=== PATIENT | female | born 1990 | race African-American/Black ===

== ENCOUNTER 2022-04-27 06:41 | Day surgery (SDC) | payer BC ==
[2022-04-26 10:22] VITALS: BMI 32.6
[2022-04-27 07:45] LABS: BHCG - Serum Negative (NEGATIVE); Pregs Control Background? CLEAR/WHITE (CLR/WHITE); Pregs Control Bar Appear? YES (CONTROL BAR)
[2022-04-27 07:51] LABS: Hemoglobin 15.4 g/dL (12.0-16.0)
[2022-04-27] MEDS ORDERED: Midazolam HCl 2 mg/2 ml Vial ONE (08:24)
[2022-04-27] MEDS ORDERED: Ondansetron PF 4 MG/2 ML Vial ONE ×2 (08:27→08:32)
[2022-04-27] MEDS ORDERED: Meperidine HCl/PF 25 MG/ML VIAL ONE (08:27)
[2022-04-27] MEDS ORDERED: Famotidine/PF 20 mg/2ml Vial ONE (08:27)
[2022-04-27] MEDS ORDERED: Dexamethasone 4 mg/ml Vial ONE (08:27)
[2022-04-27] MEDS ORDERED: fentaNYL PF 100 MCG/2 ML SYRINGE ONE ×2 (08:27→09:25)
[2022-04-27] MEDS ORDERED: Lidocaine 1% PF 5 ML VIAL ONE (08:32)
[2022-04-27] MEDS ORDERED: Metoclopramide HCl 10 MG/2 ML VIAL ONE (08:32)
[2022-04-27] MEDS ORDERED: PROPOFOL 200 MG/20 ML VIAL ONE (08:32)
[2022-04-27] MEDS ORDERED: Dexamethasone 20 MG/5 ML VIAL ONE (08:32)
[2022-04-27] MEDS ORDERED: Ketorolac Tromethamine 30 MG/ML VIAL ONE (08:32)
[2022-04-27] MEDS ORDERED: methylPREDNISolone Acetate 40 mg/ml Vial ONE (08:39)
== END 2022-04-27 10:33 | disposition home or self-care (01) ==
LOC: SDC 06:41
PROVIDERS: ATTEND Otolaryngology Plastic Surgery within the Head & Neck
PROC: 0CTQXZZ Resection of Adenoids, External Approach (ICD-10-PCS; principal; 2022-04-27)
PROC: 0CTPXZZ Resection of Tonsils, External Approach (ICD-10-PCS; principal; 2022-04-27)
DX: J35.03 Chronic tonsillitis and adenoiditis (principal); G47.30 Sleep apnea, unspecified; J35.8 Other chronic diseases of tonsils and adenoids; Z79.899 Other long term (current) drug therapy
CPT/HCPCS: 84703; 85014; 85018; 88304; J1030; J1100; J1885; J2175; J2250; J2405; J2704; J2765; S0028